=== PATIENT | male | born 1960 | race Caucasian/White ===

== ENCOUNTER → 2017-10-18 | Outpatient (CLI) | payer SELFPAY ==
[~2017-10-18] MED LIST: DIAZ5 PO; FLONASE ALLERG9.9 ML NS; MULVITMINF PO; OMEP20ER PO
[2017-10-18 18:18] LABS: Specimen Source URINE
[2017-10-19 13:16] LABS: Source Urine
== END ==
LOC: LAB SHORT 17:30 → LAB 17:30
PROVIDERS: Nurse Practitioner Family
DX: N45.1 Epididymitis (principal)
CPT/HCPCS: 87491; 87591

== ENCOUNTER 2019-05-08 13:58 | Emergency (ER) | payer BC ==
[~2019-05-08] VITALS: Ht 177.8 cm; Wt 95.2 kg
[2019-05-08] MEDS ORDERED: Robaxin-750750 MG PO (15:05)
[2019-05-08] MEDS ORDERED: PRED10 PO (15:05)
== END 2019-05-08 15:40 | disposition home or self-care (01) ==
LOC: ER 13:58
DX: M54.5 Low back pain (principal); G89.29 Other chronic pain; F17.200 Nicotine dependence, unspecified, uncomplicated; Z88.6 Allergy status to analgesic agent; Z88.5 Allergy status to narcotic agent; Z88.8 Allergy status to other drugs, medicaments and biological substances; Z79.899 Other long term (current) drug therapy
CPT/HCPCS: 72131; 96372; 99283-25; A9270-GY; J1885

== ENCOUNTER 2020-05-27 06:19 | Day surgery (SDC) | payer OTHER ==
[~2020-05-27] VITALS: Ht 177.8 cm; Wt 92.8 kg
[~2020-05-27 06:19] MED LIST changes: +MELO7.5 PO; +PRED10 PO; +Robaxin-750750 MG PO
== END 2020-05-27 23:59 | disposition home or self-care (01) ==
LOC: ORSCSDS 06:19
PROVIDERS: Orthopaedic Surgery
PROC: 0SBC4ZZ Excision of Right Knee Joint, Percutaneous Endoscopic Approach (ICD-10-PCS; principal; 2020-05-27 07:30)
DX: S83.281A Other tear of lateral meniscus, current injury, right knee, initial encounter (principal); F17.210 Nicotine dependence, cigarettes, uncomplicated
CPT/HCPCS: J0171; J0690; J1100; J1885; J2250; J2405; J2704; J3010; J7120

== ENCOUNTER 2022-01-22 11:21 | Day surgery (SDC) | payer OTHER ==
[~2022-01-22] VITALS: Ht 177.8 cm; Wt 86.0 kg
[~2022-01-22 11:21] MED LIST changes: +ALBU90OI INH; +FLONASE ALLERG9.9 M2 INH
[2022-03-31] MEDS ORDERED: MULVITA PO (10:23)
== END 2022-01-22 13:43 | disposition home or self-care (01) ==
LOC: ORSCSDS 11:21
PROVIDERS: Surgery
PROC: 0DBN8ZX Excision of Sigmoid Colon, Via Natural or Artificial Opening Endoscopic, Diagnostic (ICD-10-PCS; principal; 2022-01-22 13:00)
DX: Z12.11 Encounter for screening for malignant neoplasm of colon (principal); Z86.010 Personal history of colon polyps; K63.5 Polyp of colon; Z80.0 Family history of malignant neoplasm of digestive organs; K57.30 Diverticulosis of large intestine without perforation or abscess without bleeding; R10.31 Right lower quadrant pain; K21.9 Gastro-esophageal reflux disease without esophagitis; E78.5 Hyperlipidemia, unspecified; F17.210 Nicotine dependence, cigarettes, uncomplicated; Z79.899 Other long term (current) drug therapy
CPT/HCPCS: 88305; J2704; J7120

== ENCOUNTER → 2022-07-08 | Outpatient (CLI) | payer OTHER ==
[~2022-07-08] MED LIST changes: +MULVITA PO
[2022-07-10 11:11] LABS: COTININE Negative ng/mL (Cutoff=300)
== END | disposition home or self-care (01) ==
LOC: LAB 11:20 → LAB SHORT 11:20 → LAB FUT 04-23 08:10
PROVIDERS: Orthopaedic Surgery
DX: Z09 Encounter for follow-up examination after completed treatment for conditions other than malignant neoplasm (principal); Z87.891 Personal history of nicotine dependence

== ENCOUNTER 2022-10-06 08:19 | Day surgery (SDC) | payer OTHER ==
[2022-09-22 11:59] LABS: BASOPHILS ABSOLUTE AUTO 0.04 K/mm3 (0.00-0.23); BASOPHILS PERCENT AUTO 0 % (0-2); EOSINOPHILS ABSOLUTE AUTO 0.06 K/mm3 (0.00-0.68); EOSINOPHILS PERCENT AUTO 1 % (0-6); Hematocrit 45.8 % (37.0-53.0); Hemoglobin 15.6 g/dL (13.5-17.5); IMMATURE GRAN ABSOLUTE AUTO 0.11 K/mm3 (0.00-0.10); IMMATURE GRAN PERCENT AUTO 1 % (0-1); LYMPHOCYTES ABSOLUTE AUTO 2.72 K/mm3 (0.84-5.20); LYMPHOCYTES PERCENT AUTO 29 % (21-46); MONOCYTES ABSOLUTE AUTO 0.82 K/mm3 (0.16-1.47); MONOCYTES PERCENT AUTO 9 % (4-13); Mean Corpuscular HGB 32.2 pg (26.0-34.0); Mean Corpuscular HGB Conc 34.1 g/dL (31.5-36.5); Mean Corpuscular Volume 94 fL (80-100); Mean Platelet Volume 8.9 fL (9.1-12.4); NEUTROPHILS ABSOLUTE AUTO 5.55 K/mm3 (1.96-9.15); NEUTROPHILS PERCENT AUTO 60 % (41-73); Platelet Count 301 K/mm3 (150-400); RDW Coefficient Variation 13.5 % (11.7-14.2); RDW Standard Deviation 46.7 fL (35.1-46.3); Red Blood Cell Count 4.85 M/mm3 (4.30-5.90)
[2022-09-22 12:39] LABS: Bun/Creatinine Ratio 16.7 (12.0-20.0); Creatinine, Blood 1.02 mg/dL (0.60-1.20); Potassium, Blood 4.2 mmol/L (3.5-5.5)
[~2022-10-06] VITALS: Ht 175.3 cm; Wt 88.1 kg
[~2022-10-06 08:19] MED LIST changes: +IBUP800 PO
--- NOTE | 2022-10-06 09:53 | NUR ---
Ambulatory in Day Surgery History, Chart, Medications and Allergies reviewed before start of procedure. Lungs clear T/O to Auscultation. Patient confirms NPO status and agrees with scheduled surgery. Pre-Op teaching done. Pt verbalizes understanding. PT BELONGINGS PLACED UNDERNEATH GURNEY FOR SAFEKEEPING.
--- NOTE | 2022-10-06 10:15 | NUR ---
PT ALLERGIES REVIEWED WITH DR STARR. ELVA TO GIVE OXYCODONE PER DR STARR.
--- NOTE | 2022-10-06 11:12 | NUR ---
PT DENTURES TAKEN TO PACU FOR SAFEKEEPING.
--- NOTE | 2022-10-06 13:25 | NUR ---
. P[1315 ASSUMED CARE PT A/U DENIES PAIN OR NAUSEA DRSG CDI SENSATION AT LOW HIP NOT WIGGLING TOES AT THIS TIME PPP CAP REFIL WNL DENTURES IN MOUTH PER PT PLEASANT OFFERS NO COMPLAINTS
--- NOTE | 2022-10-06 19:19 | NUR ---
SHIFT SUMMARY POD0 R TKA, A/OX4, VSS, TOLERATING PO, SPINAL ANESTHESIA WEARING OFF BUT STILL SOME TINGLING PRESENT IN FEET AND GROIN AREA, PT REPORTS HAVING MULTIPLE KNEE SURGERIES AND HAS BEEN DOING ANKLE PUMPS PERIODICALLY IN BED. NO VOIDS BUT HE HAS ONLY HAD MINIMAL PO FLUID INTAKE AND WAS ON THE FLOOR FOR LESS THAN 4 HOURS THIS SHIFT. NO ACUTE EVENTS, CALL LIGHT IN REACH, REPORT GIVEN TO FARRAH RN.
[2022-10-07 05:00] LABS: BASOPHILS ABSOLUTE AUTO 0.01 K/mm3 (0.00-0.23); BASOPHILS PERCENT AUTO 0 % (0-2); EOSINOPHILS ABSOLUTE AUTO 0.03 K/mm3 (0.00-0.68); EOSINOPHILS PERCENT AUTO 0 % (0-6); Hematocrit 39.3 % (37.0-53.0); Hemoglobin 13.6 g/dL (13.5-17.5); IMMATURE GRAN ABSOLUTE AUTO 0.09 K/mm3 (0.00-0.10); IMMATURE GRAN PERCENT AUTO 1 % (0-1); LYMPHOCYTES ABSOLUTE AUTO 2.32 K/mm3 (0.84-5.20); LYMPHOCYTES PERCENT AUTO 15 % (21-46); MONOCYTES ABSOLUTE AUTO 1.01 K/mm3 (0.16-1.47); MONOCYTES PERCENT AUTO 7 % (4-13); Mean Corpuscular HGB 32.5 pg (26.0-34.0); Mean Corpuscular HGB Conc 34.6 g/dL (31.5-36.5); Mean Corpuscular Volume 94 fL (80-100); Mean Platelet Volume 8.8 fL (9.1-12.4); NEUTROPHILS ABSOLUTE AUTO 11.67 K/mm3 (1.96-9.15); NEUTROPHILS PERCENT AUTO 77 % (41-73); Platelet Count 273 K/mm3 (150-400); RDW Coefficient Variation 12.2 % (11.7-14.2); RDW Standard Deviation 42.5 fL (35.1-46.3); Red Blood Cell Count 4.18 M/mm3 (4.30-5.90); White Blood Cell Count 15.13 K/mm3 (4.00-11.30)
--- NOTE | 2022-10-07 05:06 | NUR ---
POD1 RIGHT TKA. DRESSING IS C/D/I. CIRCULATION AND SENSATION ARE INTACT IN RLE. PT REPORTS N/T ON LATERAL SIDES OF FEET, REPORTS THIS STARTED AFTER SPINAL WAS ADMINISTERED. VSS. PT WAS ABLE TO AMBULATE TO RECLINER THIS AM. PAINFUL TO BEAR WEIGHT ON RLE. PAIN DIFFICULT TO MANAGE T/O THE NIGHT, MEDICATED FOR NAUSEA MULTIPLE TIMES. PT TOLLERATING PO INTAKE AND VOIDING W/O DIFFICULTY. PLAN FOR PT TO WORK WITH PT THIS AM AND D/C HOME IF CLEARED. THE PATIENT IS RESTING IN RECLINER, IN NO DISTRESS, CALL LIGHT IN REACH
[2022-10-07 05:48] LABS: Bun/Creatinine Ratio 18.2 (12.0-20.0); Calcium, Blood 8.6 mg/dL (8.5-10.1); Creatinine, Blood 0.88 mg/dL (0.60-1.20); Potassium, Blood 3.8 mmol/L (3.5-5.5)
[2022-10-07] MEDS ORDERED: ASPI81CH PO (07:55)
[2022-10-07] MEDS ORDERED: OXAYDO5 M2 PO (07:55)
--- NOTE | 2022-10-07 10:00 | NUR ---
DISCHARGE SUMMARY PT A&OX4, VSS/RA, EKTA PO, VOIDING, AMB SBA FWW & GB, UP TO CHAIR, PT EVAL'D, PAIN MANAGED, IV DC'D. DC INS PROVIDED. PT REP UNDERSTANDING THOSE INSTRUCTIONS INCLUDING FU WITH SG, SHORT FREQ AMB W/FWW, DRESSING CHANGES, PAIN MANAGEMENT, TEDS. LEFT FLOOR VIA WC WITH ASSISTANT SITE MANAGER TO GO HOME WITH BROTHER WITH ALL PERSONAL POSSESSIONS INCLUDING AQUACEL DRESSINGS, DC PACKET AND 1 NARC SCRIPT AND 1 ASA SCRIPT.
== END 2022-10-07 10:00 | disposition home or self-care (01) ==
LOC: ORSCMMR 08:19 → ORD 10:00 → ORSCMMR 10:00 → SURS 13:45 → ORSCMMR 13:45 → SURS 10-07 10:00
PROVIDERS: Orthopaedic Surgery
PROC: 8E0Y0CZ Robotic Assisted Procedure of Lower Extremity, Open Approach (ICD-10-PCS; principal; 2022-10-06 10:00)
PROC: 0SRC0JA Replacement of Right Knee Joint with Synthetic Substitute, Uncemented, Open Approach (ICD-10-PCS; principal; 2022-10-06 10:00)
PROC: 0SPC04Z Removal of Internal Fixation Device from Right Knee Joint, Open Approach (ICD-10-PCS; principal; 2022-10-06 10:00)
DX: M17.11 Unilateral primary osteoarthritis, right knee (principal); I10 Essential (primary) hypertension; J44.9 Chronic obstructive pulmonary disease, unspecified; Z87.891 Personal history of nicotine dependence; K21.9 Gastro-esophageal reflux disease without esophagitis; Z79.899 Other long term (current) drug therapy
CPT/HCPCS: 27447; 20985; 20680; S2900; 36415; 73560-RT; 80048; 85025; 94760; 97116; 97162; 97530; A9270; C1713; C1776; J0171; J0690; J0735; J1100; J1885; J2250; J2270; J2370; J2405; J2704; J2765; J2795; J3010; J7120

== ENCOUNTER 2023-08-10 14:35 | Emergency (ER) | payer OTHER ==
[~2023-08-10] VITALS: Ht 177.8 cm; Wt 90.7 kg
[~2023-08-10 14:35] MED LIST changes: +ASPI81CH PO; +OXAYDO5 M2 PO
[2023-08-10 15:06] LABS: BASOPHILS ABSOLUTE AUTO 0.04 K/mm3 (0.00-0.23); BASOPHILS PERCENT AUTO 1 % (0-2); EOSINOPHILS ABSOLUTE AUTO 0.21 K/mm3 (0.00-0.68); EOSINOPHILS PERCENT AUTO 2 % (0-6); Hematocrit 50.6 % (37.0-53.0); Hemoglobin 17.3 g/dL (13.5-17.5); IMMATURE GRAN ABSOLUTE AUTO 0.04 K/mm3 (0.00-0.10); IMMATURE GRAN PERCENT AUTO 1 % (0-1); LYMPHOCYTES ABSOLUTE AUTO 3.09 K/mm3 (0.84-5.20); LYMPHOCYTES PERCENT AUTO 36 % (21-46); MONOCYTES ABSOLUTE AUTO 0.56 K/mm3 (0.16-1.47); MONOCYTES PERCENT AUTO 7 % (4-13); Mean Corpuscular HGB 30.9 pg (26.0-34.0); Mean Corpuscular HGB Conc 34.2 g/dL (31.5-36.5); Mean Corpuscular Volume 91 fL (80-100); NEUTROPHILS ABSOLUTE AUTO 4.69 K/mm3 (1.96-9.15); NEUTROPHILS PERCENT AUTO 54 % (41-73); Platelet Count 282 K/mm3 (150-400); RDW Coefficient Variation 12.8 % (11.7-14.2); RDW Standard Deviation 42.5 fL (35.1-46.3); Red Blood Cell Count 5.59 M/mm3 (4.30-5.90); White Blood Cell Count 8.63 K/mm3 (4.00-11.30)
[2023-08-10 15:28] LABS: Albumin, Blood 3.6 g/dL (3.4-5.0); Albumin/Globulin Ratio 1.1 (0.8-1.8); Bilirubin, Total 0.4 mg/dL (0.1-1.0); Calcium, Blood 9.3 mg/dL (8.5-10.1); Globulin, Blood 3.4 g/dL (2.2-4.0); Potassium, Blood 3.7 mmol/L (3.5-5.5)
[2023-08-10 17:15] VITALS: BP 139/65
== END 2023-08-10 17:47 | disposition home or self-care (01) ==
LOC: ER 14:35
PROVIDERS: Physician Assistant
DX: R07.2 Precordial pain (principal); F17.200 Nicotine dependence, unspecified, uncomplicated; Z79.51 Long term (current) use of inhaled steroids; Z79.82 Long term (current) use of aspirin; Z79.899 Other long term (current) drug therapy; Z88.5 Allergy status to narcotic agent; Z88.6 Allergy status to analgesic agent; Z88.8 Allergy status to other drugs, medicaments and biological substances
CPT/HCPCS: 71046; 80053; 83880; 84484; 85025; 93005; 93010; 99285-25